=== PATIENT | female | born 1980 ===

== ENCOUNTER 2021-08-07 22:49 | Outpatient (CLI) | payer SELFPAY | END 2021-08-07 23:54 | disposition home or self-care (01) | LOC: EDBD → TRG 22:49 → APU 22:50 → TRG 23:54 | PROVIDERS: ATTEND Obstetrics & Gynecology | DX: O09.893 Supervision of other high risk pregnancies, third trimester (principal); O47.1 False labor at or after 37 completed weeks of gestation; Z3A.38 38 weeks gestation of pregnancy | CPT/HCPCS: 59025 ==

== ENCOUNTER 2021-08-08 11:54 | Inpatient (IN) | payer SELFPAY ==
[2021-08-08] MEDS ORDERED: LACTATED RINGERS 1,000 ML ONE (13:07)
[2021-08-08] MEDS ORDERED: LIDOCAINE (2%) 20 MG/1 ML VIAL 20 ML MDV INFILTRATI ONE (13:24)
[2021-08-08] MEDS ORDERED: METHYLERGONOVINE MALEATE 0.2 MG/ML VIAL IM PRN (13:24)
[2021-08-08] MEDS ORDERED: miSOPROStol 200 MCG TAB PR PRN ×2 (13:24→16:28)
[2021-08-08] MEDS ORDERED: MINERAL OIL 30 ML ORAL LIQD PO PRN (13:24)
[2021-08-08] MEDS ORDERED: ePHEDrine SULFATE 50 MG/1 ML INJ IV PRN ×2 (13:24→15:16)
[2021-08-08] MEDS ORDERED: ACETAMINOPHEN 325 MG TAB PO PRN (13:24)
[2021-08-08] MEDS ORDERED: OXYTOCIN 10 UNIT/1 ML INJ IM PRN (13:24)
[2021-08-08] MEDS ORDERED: NalbUPHINE 10 MG/1 ML INJ IV PRN (13:24)
[2021-08-08] MEDS ORDERED: TERBUTALINE 1 MG/1 ML INJ SUB-Q PRN (13:24)
[2021-08-08] MEDS ORDERED: BUTORPHANOL 2 MG/1 ML INJ IV PRN (13:24)
[2021-08-08] MEDS ORDERED: CARBOPROST TROMETHAMINE 250 MCG/1 ML INJ IM PRN (13:24)
[2021-08-08] MEDS ORDERED: LOPERAMIDE 2 MG CAP PO PRN (13:24)
[2021-08-08] MEDS ORDERED: LACTATED RINGERS 1,000 ML IV SCH (13:30)
[2021-08-08 13:43] LABS: Hematocrit 40.1 % (30.3-42.9); Hemoglobin 13.2 gm/dl (10.1-14.3); Mean Corpuscular HGB Conc 33 % (30-34); Mean Corpuscular Volume 86 fl (79-97); Platelet Count 138 K/mm3 (140-440); Red Blood Count 4.66 M/mm3 (3.65-5.03); Red Cell Distribution Width 15.9 % (13.2-15.2)
[2021-08-08] MEDS ORDERED: OXYTOCIN DRIP 30 UNITS/500 ML BAG IV SCH ×2 (14:00)
--- NOTE | 2021-08-08 14:20 | History and Physical Report ---
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 has been complicated by hypothyroidism, AMA, covid 19 (June 2021), elevated glucose test with normal 3 hr gtt and history of PPH. Presents to [facility] with reports of frequent painful ctxs since last night that progressively worsened today. Reports +FM. Denies any VB, unsure if she is leaking water (states she was wet last night at 2200). Labs: A+, antibody negative; PAP normal; rubella immune; VDRL negative; urine culture negative; HBsAg negative; HIV negative; HSV2 negative; Hep C negative; GC/Chlamydia/Trich negative; MSAFP/Multiple markers negative; 1 hr gtt - 155, 3 hr gtt - 83, 166, 160, 110; TSH 1.91; GBS negative. Past History Past Medical History: thyroid disease Past Surgical History: no surgical history Social history: , lives with family, full code. denies: smoking, alcohol abuse, prescription drug abuse, IV drug use - Obstetrical History Expected Date of Delivery: 08/19/21 Actual Gestation: 38 Week(s) 3 Day(s) : 7 Para: 5 Hx # Term Pregnancies: 5 Number of Pregnancies: 0 Spontaneous Abortions: 1 Induced : 0 Number of Living Children: 5 Medications and Allergies Allergies Allergy/AdvReac Type Severity Reaction Status Date / Time No Known Allergies Allergy Unverified 08/07/21 23:23 Active Meds: Active Medications Acetaminophen (Acetaminophen 325 Mg Tab) 650 mg PO Q4H PRN PRN Reason: Pain, Mild (1-3) Butorphanol Tartrate (Butorphanol 2 Mg/1 Ml Inj) 2 mg IV Q2H PRN PRN Reason: Pain , Severe (7-10) Carboprost Tromethamine (Carboprost Tromethamine 250 Mcg/1 Ml Inj) 250 mcg IM ONCE PRN PRN Reason: Uterine Bleeding Ephedrine Sulfate (Ephedrine Sulfate 50 Mg/1 Ml Inj) 10 mg IV Q2M PRN PRN Reason: Hypotension Oxytocin/Sodium Chloride (Pitocin/Ns 30 Unit/500ml) 30 units in 500 mls @ 2 mls/hr IV TITR CORY; Protocol Lactated Ringer's (Lactated Ringers) 1,000 mls @ 125 mls/hr IV DIRECT CORY Oxytocin/Sodium Chloride (Pitocin/Ns 30 Unit/500ml) 30 units in 500 mls @ 40 mls/hr IV TITR CORY; Protocol Loperamide HCl (Loperamide 2 Mg Cap) 2 mg PO ONCE PRN PRN Reason: give with Hemabate Methylergonovine Maleate (Methylergonovine Maleate 0.2 Mg/Ml Vial) 0.2 mg IM ONCE PRN PRN Reason: Uterine Bleeding Mineral Oil (Mineral Oil 30 Ml Oral Liqd) 30 ml PO QHS PRN PRN Reason: Constipation Misoprostol (Misoprostol 200 Mcg Tab) 800 mcg TX ONCE PRN PRN Reason: Uterine Bleeding Nalbuphine HCl (Nalbuphine 10 Mg/1 Ml Inj) 10 mg IV Q2H PRN PRN Reason: Pain, Moderate (4-6) Oxytocin (Oxytocin 10 Unit/1 Ml Inj) 10 unit IM ONCE PRN PRN Reason: Uterine Bleeding Terbutaline Sulfate (Terbutaline 1 Mg/1 Ml Inj) 0.25 mg SUB-Q ONCE PRN PRN Reason: Hyperstimulation/Hypertonicity Review of Systems All systems: negative Genitourinary: vaginal discharge (blood-tinged musous), contractions - Vital Signs Vital signs: Vital Signs Pulse Pulse Ox 84 99 08/08/21 13:14 08/08/21 13:14 Temp Pulse Resp BP Pulse Ox 98.8 F 68 20 122/74 99 08/08/21 13:19 08/08/21 13:19 08/08/21 13:19 08/08/21 13:19 08/08/21 13:14 - Physical Exam Breasts: Positive: normal Cardiovascular: Regular rate Lungs: Positive: Normal air movement Abdomen: Positive: other (gravid) Genitourinary (Female): Positive: normal external genitalia, normal perenium Vagina: Positive: discharge (blood-tinged mucous) Uterus: Positive: enlarged (S=D) Extremities: Positive: normal Deep Tendon Reflex Grade: Normal +2 - Obstetrical FHR: category 1 Uterine Contraction Monitor Mode: External Cervical Dilatation: 7 (vertex) Cervical Effacement Percentage: 80 station: -3 Uterine Contraction Frequency (min): 6-7 Uterine Contraction Pattern: Irregular Uterine Tone Measurement Phase: Resting Uterine Contraction Intensity: Moderate Results Result Diagrams: 08/08/21 13:26 Abnormal lab results 08/08/21 Range/Units 13:26 RDW 15.9 H (13.2-15.2) % Plt Count 138 L (140-440) K/mm3 All other labs normal. Assessment and Plan - Patient Problems (1) Active labor at term Current Visit: Yes Status: Acute Plan to address problem: Admit to L&D Initiate Pitocin titration @ 2mu/min, increase as tolerated Pain meds as desired per orders Anticipate (2) AMA (advanced maternal age) multigravida 35+ Current Visit: Yes Status: Acute Qualifiers: Trimester: first trimester Qualified Code(s): O09.521 - Supervision of elderly multigravida, first trimester
[2021-08-08] MEDS ORDERED: NALOXONE 2 MG/2 ML INJ IV PRN (15:16)
--- NOTE | 2021-08-08 15:16 | Anesthesia Consultation ---
Anesthesia Consult and Med Hx Date of service: 08/08/21 - Airway Anesthetic Teeth Evaluation: Good ROM Head & Neck: Adequate Mental/Hyoid Distance: Adequate Mallampati Class: Class II Intubation Access Assessment: Probably Good - Pulmonary Exam CTA: Yes - Cardiac Exam Cardiac Exam: RRR - Pre-Operative Health Status ASA Pre-Surgery Classification: ASA2 Proposed Anesthetic Plan: Epidural - Pulmonary Hx Asthma: No COPD: No Hx Pneumonia: Yes (COVID 30 june) - Cardiovascular System Hx Hypertension: No - Central Nervous System Hx Seizures: No Hx Psychiatric Problems: No - Endocrine Hx Renal Disease: No Hx End Stage Renal Disease: No Hx Hypothyroidism: Yes Hx Hyperthyroidism: No - Hematic Hx Anemia: No Hx Sickle Cell Disease: No - Other Systems Hx Alcohol Use: No
--- NOTE | 2021-08-08 15:39 | Progress Note ---
Labor Epidural - Labor Epidural Start Time: 15:27 Stop Time: 15:30 Performed by:: MICHAEL CESPEDES Procedure: Patient is requesting epidural for labor pain. H&P, and labs reviewed. Procedure explained, questions answered, consent obtained. Patient in sitting position with blood pressure cuff and pulse ox on and working. Timeout performed immediately before start of procedure. Sterile Duraprep prep/drape. 3 mL 1% lidocaine skin wheal at L[3]-L[4]. 17-gauge tuohy epidural needle advanced to [id number] with saline at [7] cm. 25-gauge spinal needle advanced until clear, free-flowing CSF. Intrathecal dexmedetomidine [5] mcg administered and needle removed. Epidural catheter advanced to [12] cm, negative aspiration for blood and csf, negative test dose 3 ml 1.5% lidocaine with epinephrine. Sterile sponge and tegaderm applied, followed by tape reinforcement. Patient tolerated procedure well.
[2021-08-08] MEDS ORDERED: fentaNYL-BUPIV 2 MCG/ML-0.125% 200 MCG/100 ML BAG EPIDURAL SCH (16:00)
[2021-08-08] MEDS ORDERED: diphenhydrAMINE 25 MG CAP PO PRN (16:23)
[2021-08-08] MEDS ORDERED: WITCH HAZEL/ GLYCERIN PAD TP PRN (16:23)
[2021-08-08] MEDS ORDERED: LANOLIN/ZINC/DIMETHICONE (LANSINOH) 7 GM TP PRN (16:23)
[2021-08-08] MEDS ORDERED: ONDANSETRON 4 MG/2 ML INJ IV PRN (16:23)
[2021-08-08] MEDS ORDERED: MAGNESIUM HYDROXIDE (MOM) ORAL LIQD UDC PO PRN (16:23)
[2021-08-08] MEDS ORDERED: PROMETHAZINE 25 MG TAB PO PRN (16:23)
[2021-08-08] MEDS ORDERED: oxyCODONE /ACETAMINOPHEN 5-325MG TAB PO PRN (16:27)
--- NOTE | 2021-08-08 16:34 | Procedure Note ---
OB Delivery Note - Delivery Date of Delivery: 08/08/21 (1603) Surgeon: SANDRA COTTRELL (CNM) Estimated blood loss: other (150cc) - Vaginal Delivery presentation: vertex Delivery position: OA (LINN) Intrapartum events: none Delivery induction: none Delivery augmentation: rupture of membranes (SROM @ 1430, clear fluids) Delivery monitor: external FHT, external uterine Route of delivery: Delivery placenta: spontaneous (1609, basurto, disposed per hospital policy) Delivery cord: nuchal cord (x1, reduced per kathy hernandez during delivery), 3 umbilical vessels Episiotomy: none Delivery laceration: none Anesthesia: epidural Delivery comments: of viable male infant placed directly on maternal abdomen. Cord double clamped, cut by FOB after cessation of pulsation. Placenta spontaneously delivered, disposed per hospital policy. Uterus firm @ U-2, hemostasis maintained. Perineum intact. Mother and baby safe, stable and left in care of RN. - Infant A at 1 minute: 8 at 5 minutes: 9 Gender: Male (Weight: 3310 gms (7lbs 5ozs) 19 inches)
[2021-08-08] MEDS: IBUPROFEN 600 MG TAB PO SCH (23:00)
[2021-08-09 06:09] LABS: Hematocrit 37.4 % (30.3-42.9)
--- NOTE | 2021-08-09 09:02 | Post Anesthesia Evaluation ---
- Post Anesthesia Evaluation Patient Participated: Yes Airway Patent: Yes Stable Respiratory Function: Yes Nausea/Vomiting: No Temp > 96.8F: Yes Pain Manageable: Yes Adequeate Hydration: Yes Anesthesia Complications: No Block Receding Appropriately: Yes
[2021-08-09] MEDS: IBUPROFEN 600 MG TAB PO SCH (09:40)
[2021-08-09 16:05] VITALS: BP 123/60
--- NOTE | 2021-08-09 16:06 | Discharge Summary ---
Providers - Providers Date of Admission: 08/08/21 11:55 Date of discharge: 08/09/21 Attending physician: MADDIE JAIN 08/08/21 16:24 Consult to Matt[employer]pper [CONS] Routine Reason For Exam: assistance with , SNS Primary care physician: MADDIE JAIN Hospitalization Reason for admission: active labor Delivery: Episiotomy: none Laceration: none Other procedures: none complications: none Discharge diagnosis: IUP at term delivered Roc[place]le baby: male Hospital course: 40 yo, @ 38.3 wks, initiated care with [place] [facility] ha[facility] @ 9.1 wks gestation. has been complicated by hypothyroidism, AMA, covid 19 (June 2021), elevated glucose test with normal 3 hr gtt and history of PPH. Presents to [facility] with reports of frequent painful ctxs since last night that progressively worsened today. Reports +FM. Delivered viable male infant without difficulty, no complications. Condition at discharge: Good Disposition: 01 HOME / SELF CARE / HOMELESS - Discharge Diagnoses (1) AMA (advanced maternal age) multigravida 35+ Status: Acute Qualifiers: Trimester: first trimester Qualified Code(s): O09.521 - Supervision of elderly multigravida, first trimester (2) Status post normal vaginal delivery Status: Acute Plan - Discharge Medications Prescriptions: Ibuprofen [Motrin 600 MG tab] 600 mg PO Q8H 7 Days #21 tablet - Provider Discharge Summary Activity: routine, no sex for 6 weeks, no heavy lifting 4 weeks, no strenuous exercise Diet: routine Instructions: routine Additional instructions: [] Smoking cessation referral if applicable(refer to patient education folder for contact #) [] Refer to [facility] Booklet Call your doctor immediately for: * Fever > 100.5 * Heavy vaginal bleeding ( >1 pad per hour) * Severe persistent headache * Shortness of breath * Reddened, hot, painful area to leg or breast - Follow up plan Follow up: MADDIE JAIN MD [Primary Care Provider] - 6 Weeks
== END 2021-08-09 18:35 | disposition home or self-care (01) | DRG 807 ==
LOC: LD 11:54 → TRG 11:54 → LD 11:55 → APU 11:55 → EDBD 11:55 → TRG 13:22 → OB 19:37
PROVIDERS: ADMIT Obstetrics & Gynecology; ATTEND Obstetrics & Gynecology
PROC: 10E0XZZ Delivery of Products of Conception, External Approach (ICD-10-PCS; principal; 2021-08-08)
PROC: 3E0R3BZ Introduction of Anesthetic Agent into Spinal Canal, Percutaneous Approach (ICD-10-PCS; 2021-08-08)
PROC: 00HU33Z Insertion of Infusion Device into Spinal Canal, Percutaneous Approach (ICD-10-PCS; 2021-08-08)
DX: O69.81X0 Labor and delivery complicated by cord around neck, without compression, not applicable or unspecified (principal); Z37.1 Single stillbirth; Z3A.38 38 weeks gestation of pregnancy; Z20.822 Contact with and (suspected) exposure to COVID-19
CPT/HCPCS: 36415; 85014; 85018; 85027; 86592; 86850; 86900; 86901; G0378; J3490; J2590; J7120; U0003